=== PATIENT | female | born 1975 | race Caucasian/White ===

== ENCOUNTER 2025-01-08 11:04 | Outpatient (CLI) | payer OTHER, SELFPAY ==
--- NOTE | ~2025-01-08 | XR_ITS ---
EXAM: XR abdomen/kub 1V DATE: 01/08/2025 11:52 HISTORY: Bilateral kidney stones . COMPARISON: None available. FINDINGS: Clear lung bases. Normal bowel gas pattern. Enlarged liver. 3 mm calcification projecting over the bilateral renal shadows. Regional bones and soft tissues normal for age. IMPRESSION: Hepatomegaly. 3 mm calcifications over the bilateral renal shadows, may represent nephrol iths or artifact from bowel content. Comparison to outside studies would be helpful if available. Reviewed, dictated and finalized at location [facility]. IMPRESSION: Hepatomegaly. 3 mm calcifications over the bilateral renal shadows, may represent nephroliths or artifact from bowel content. Comparison to outsid e studies would be helpful if available.
== END 2025-01-08 11:05 | disposition home or self-care (01) ==
PROVIDERS: PCP Urology; Visit Provider Urology
DX: N20.0 Calculus of kidney (principal); R16.0 Hepatomegaly, not elsewhere classified
CPT/HCPCS: 74018